=== PATIENT | female | born 1970 | race Caucasian/White ===

== ENCOUNTER 2017-06-18 18:32 | Emergency (ER) | payer MEDICAID ==
[~2017-06-18] VITALS: Ht 167.6 cm; Wt 70.0 kg
[~2017-06-18 18:32] MED LIST: ACET500T98 PO; NITR-58 PO; OMEP20CA9; RANI150T9
[2017-06-18 19:19] VITALS: Ht 167.6 cm; Wt 70.0 kg
[2017-06-18] MEDS ORDERED: ASPIRIN 325 MG TAB PO STA (19:23)
[2017-06-18] MEDS: NITROGLYCERIN (SL) 0.4 MG TAB SL PRN (19:39)
[2017-06-18 19:47] LABS: BASOPHILS % 0.2 % (0.0-2.0); EOSINOPHILS % 0.3 % (0.0-7.0); HEMATOCRIT 38.1 % (37.0-47.0); HEMOGLOBIN 13.5 g/dl (12.0-16.0); LYMPHOCYTES # 1.5 10^3/ul (0.8-2.9); LYMPHOCYTES % 24.3 % (15.0-51.0); MEAN CORPUSCULAR HEMOGLOBIN 32.1 pg (29.0-33.0); MEAN CORPUSCULAR HGB CONC 35.4 g/dl (32.0-37.0); MEAN CORPUSCULAR VOLUME 90.7 fl (82.0-101.0); MEAN PLATELET VOLUME 12.2 fl (7.4-10.4); MONOCYTE # 0.4 10^3/ul (0.3-0.9); NEUTROPHILS % 68.9 % (39.0-77.0); PLATELET COUNT 194 10^3/UL (140-415); RED CELL DISTRIBUTION WIDTH 11.9 % (11.5-14.5); WHITE BLOOD COUNT 6.3 10^3/ul (4.8-10.8)
[2017-06-18] MEDS ORDERED: ONDANSETRON 4 MG INJ IV STA (19:50)
[2017-06-18] MEDS ORDERED: LIDOCAINE/MYLANTA 40 ML BTL PO ONE (20:00)
--- NOTE | 2017-06-18 20:02 | RADRPT ---
PROCEDURE: XR Chest AP portable CLINICAL INDICATION: Chest pain TECHNIQUE: An AP portable radiograph of the chest was submitted. COMPARISON: 09/01/2007 FINDINGS: Support Hardware: None Cardiovascular: The cardiovascular silhouette appears unremarkable. Lung Wyman: The lung wyman appear clear with no nodule, alveolar infiltrate, or interstitial promi nence evident. Pleural Spaces: No pneumothorax or pleural effusion is identified. Osseous Structures: The osseous structures appear intact. Soft Tissues: The soft tissues appear unremarkable. IMPRESSION: Stable and unremarkable portable chest. Physician Diana Date Time Electronically viewed and signed by Sharda Liao Physician on 06/18/2017 20:02 /
[2017-06-18 20:05] LABS: ALBUMIN 4.4 g/dl (3.3-4.9); BILIRUBIN,INDIRECT 0.1 mg/dl (0-1.1); BILIRUBIN,TOTAL 0.1 mg/dl (0.2-1.3); TOTAL PROTEIN 7.6 g/dl (6.1-8.1)
[2017-06-18 20:06] LABS: ANION GAP 21 (8-16); BLOOD UREA NITROGEN 11 mg/dl (7-20); CALCIUM 9.1 mg/dl (8.4-10.2); CARBON DIOXIDE 22 mmol/L (21-31); CHLORIDE 106 mmol/L (97-110); CREATININE 0.77 mg/dl (0.44-1.00); GLUCOSE 204 mg/dl (70-220); POTASSIUM 3.3 mmol/L (3.5-5.1); SODIUM 146 mmol/L (135-144)
[2017-06-18 20:16] LABS: B-TYPE NATRIURETIC PEPTIDE 46 PG/ML (0-125)
[2017-06-18 20:17] LABS: TROPONIN-I < 0.012 ng/ml (0.00-0.12)
[2017-06-18] MEDS ORDERED: PANT40TA4 PO (21:02)
[2017-06-18] MEDS ORDERED: KETOROLAC 30 MG INJ IV STA (21:42)
[2017-06-18] MEDS ORDERED: NAPR-688 PO (22:43)
--- NOTE | 2017-06-18 23:01 | ERD ---
ER Documentation Chief Complaint Date/Time DATE: 06/18/17 TIME: 22:53 Chief Complaint chest pain started 1.5 hours ago HPI This 46-year-old female presents with left upper chest pain that just started 3- 1/2 hours prior to my time seeing her. Chest pain is reproduced by palpation in her left upper quadrant and she has some pain when she takes a deep breath. Also has some nausea. She has no cardiac risk factors. No hypertension, no diabetes, no cholesterol. Does not smoke ROS All systems reviewed and are negative except as per history of present illness. Medications Home Meds Active Scripts Naproxen* (Naproxen*) 500 Mg Tablet, 500 MG PO BID, #20 TAB Prov:AKIKO ARMSTRONG DO 06/18/17 Reported Medications Pantoprazole* (Pantoprazole*) 40 Mg Tablet.dr, 40 MG PO AC BREAKFAST, TAB 06/18/17 Discontinued Reported Medications Acetaminophen (Tylenol) 500 Mg Tab, 500 MG PO PRN 09/05/11 Omeprazole* (Prilosec*) 20 Mg Capsule. 11/21/10 Ranitidine Hcl* (Zantac*) 150 Mg Capsule 05/02/10 Discontinued Scripts Nitrofurantoin Monohyd Macrocr* (Macrobid*) 100 Mg Capsr, 100 MG PO BID for 7 Days, CAP Prov:RONALD FONSECA [employer] 03/05/16 Allergies Allergies: Coded Allergies: No Known Drug Allergies (Verified Allergy, Mild, 06/18/17) PMhx/Soc Medical and Surgical Hx: pt denies Medical Hx, pt denies Surgical Hx History of Surgery: No Anesthesia Reaction: No Hx Neurological Disorder: No Hx Respiratory Disorders: No Hx Cardiac Disorders: No Hx Psychiatric Problems: No Hx Miscellaneous Medical Probl: No Hx Alcohol Use: No Hx Substance Use: No Hx Tobacco Use: No Smoking Status: Never smoker Physical Exam Vitals Vital Signs Date Time Temp Pulse Resp B/P Pulse Ox O2 Delivery O2 Flow Rate FiO2 06/18/17 19:30 98.2 133 18 134/74 97 Room Air 06/18/17 19:19 98.2 128 20 145/86 97 Physical Exam Const: [] No distress Head: Atraumatic Eyes: Normal Conjunctiva ENT: Normal External Ears, Nose and Mouth. Neck: Full range of motion..~ No meningismus. Resp: Clear to auscultation bilaterally Cardio: Regular rate and rhythm, no murmurs Abd: Soft, non tender, non distended. Normal bowel sounds Skin: No petechiae or rashes Back: No midline or flank tenderness Ext: No cyanosis, or edema. Tenderness along all upper ribs of L constrochondral junction Neur: Awake and alert. Psych: Normal Mood and Affect Result Diagram: 06/18/17192906/18/171929 Results 24 hrs Laboratory Tests Test 06/18/17 19:30 White Blood Count 6.310^3/ul Red Blood Count 4.2010^6/ul Hemoglobin 13.5g/dl Hematocrit 38.1% Mean Corpuscular Volume 90.7fl Mean Corpuscular Hemoglobin 32.1pg Mean Corpuscular Hemoglobin Concent 35.4g/dl Red Cell Distribution Width 11.9% Platelet Count 27284^3/UL Mean Platelet Volume 12.2fl Neutrophils % 68.9% Lymphocytes % 24.3% Monocytes % 6.0% Eosinophils % 0.3% Basophils % 0.2% Nucleated Red Blood Cells % 0.0/100WBC Neutrophils # (Manual) 4.310^3/ul Lymphocytes # 1.510^3/ul Monocytes # 0.410^3/ul Eosinophils # 0.010^3/ul Basophils # 0.010^3/ul Nucleated Red Blood Cells # 0.010^3/ul Sodium Level 146mmol/L Potassium Level 3.3mmol/L Chloride Level 106mmol/L Carbon Dioxide Level 22mmol/L Anion Gap 21 Blood Urea Nitrogen 11mg/dl Creatinine 0.77mg/dl Glucose Level 204mg/dl Calcium Level 9.1mg/dl Total Bilirubin 0.1mg/dl Direct Bilirubin 0.00mg/dl Indirect Bilirubin 0.1mg/dl Aspartate Amino Transf (AST/SGOT) 26IU/L Alanine Aminotransferase (ALT/SGPT) 37IU/L Alkaline Phosphatase 87IU/L Troponin I < 0.012ng/ml B-Type Natriuretic Peptide 46PG/ML Total Protein 7.6g/dl Albumin 4.4g/dl Lipase 166U/L Current Medications Medications (Trade) Dose Ordered Sig/Susan Route PRN Reason Start Time Stop Time Status Last Admin Dose Admin Aspirin (Aspirin) 325 mg ONCE STAT PO 06/18/17 19:23 06/18/17 19:24 DC 06/18/17 19:38 Nitroglycerin (Nitroglycerin (Sl Tab) 0.4 Mg) 1 tab Q5M UP TO 3 DOSES PRN SL CHEST PAIN 06/18/17 19:30 06/18/17 19:39 Ondansetron HCl (Zofran Inj) 4 mg ONCE STAT IV 06/18/17 19:50 06/18/17 19:51 DC 06/18/17 20:08 Miscellaneous Medication (Gi Cocktail (2)) 40 ml ONCE ONCE PO 06/18/17 20:00 06/18/17 20:01 DC 06/18/17 20:06 Ketorolac Tromethamine (Toradol) 30 mg ONCE STAT IV 06/18/17 21:42 06/18/17 21:43 DC 06/18/17 22:05 Procedures/MDM No distress 46-year-old female with chest wall pain likely costochondritis. No signs of cardiac ischemia. Patient was given aspirin GI cocktail. She had no pain relief with GI cocktail. She was then given Toradol which did help relieve her pain. She has no cardiac risk factors or PE risk factors. I have very low suspicion for acute coronary syndrome this 46-year-old female. Discharge with primary care follow-up instructions obtain echo in the next 2 days. Return precautions also given. EKG interpretation: Sinus tachycardia rate of 103, normal axis, normal intervals , no ST or T-wave changes concerning for acute ischemia Chest x-ray interpretation: I see no acute process seen a wide mediastinum, no fractures, no infiltrates, no pneumothorax. shelter monitor interpretation: Normal sinus rhythm without arrhythmia. Departure Diagnosis: Primary Impression: Costochondritis, acute Additional Impression: Chest pain Condition: Stable Patient Instructions: Costochondritis, Chest Pain, Uncertain Cause Additional Instructions: Llame al doctor MAANA y denia vicki TIFFANIE PARA DENTRO DE 2-3 DEWEY. Consigue vicki tiffanie para vicki ECHOCARDIOGRAMA. Dgale a la secretaria que nosotros le instruimos hacer esta tiffanie.Avise o llame si mora condicin se empeora antes de la tiffanie. Regresa aqui si peor o no mejor. AKIKO ARMSTRONG DO Jun 18, 2017 23:01
[2017-06-18 23:25] VITALS: BP 131/71; PULSE 133; RESP 18; TEMP 98.2
== END 2017-06-18 23:27 | disposition home or self-care (01) ==
LOC: E/R 18:32
DX: M94.0 Chondrocostal junction syndrome [Tietze] (principal); R06.02 Shortness of breath
CPT/HCPCS: 36415; 71010; 80048; 80076; 83690; 83880; 84484; 85025; 93005; 96374; 96375; J1885; J2405; Z7502; Z7610

== ENCOUNTER 2019-06-03 21:12 | Emergency (ER) | payer SELFPAY ==
[~2019-06-03] VITALS: Ht 165.1 cm; Wt 74.5 kg
[~2019-06-03 21:12] MED LIST changes: -ACET500T98 PO; +BUTA1CAP38 PO; +METH750T93 PO; +NAPR-688 PO; -NITR-58 PO; -OMEP20CA9; +PANT40TA4 PO; -RANI150T9; +TYL500 PO
[2019-06-03 21:16] VITALS: Ht 165.1 cm; Wt 74.5 kg
[2019-06-03 23:01] VITALS: BP 134/71; PULSE 59; RESP 18
== END 2019-06-03 23:03 | disposition home or self-care (01) ==
LOC: FTE 21:12
DX: R51 Headache (principal)
CPT/HCPCS: 81025; 96372; 99284; J1885